=== PATIENT | male | born 1950 | race Caucasian/White ===

== ENCOUNTER 2017-03-10 10:29 | Emergency (ER) | payer MEDICARE ==
[2017-03-10] MEDS ORDERED: Albuterol/Ipratropium 3.0-0.5 MG/3 ML Neb Soln NEB ONE (10:47)
[2017-03-10] MEDS ORDERED: Sodium Chloride 0.9% 10 ML Syringe FLUSH PRN (10:52)
[2017-03-10] MEDS ORDERED: methylPREDNISolone Sodium Succinate 125 MG/2 ML SDV IVPUSH ONE (10:52)
[2017-03-10] MEDS ORDERED: Sodium Chloride 0.9% 2.5 ML Syringe FLUSH PRN (10:52)
--- NOTE | 2017-03-10 10:59 | EDM.PDOC ---
ED HPI GENERAL MEDICAL PROBLEM - General Chief Complaint: Respiratory Problem Stated Complaint: TROUBLE BREATHING Time Seen by Provider: 03/10/17 10:40 - History of Present Illness INITIAL COMMENTS - FREE TEXT/NARRATIVE: HISTORY AND PHYSICAL: History of present illness: The patient is a 66-year-old male with a history of COPD hypercholesterolemia diabetes A. fib and follows at [facility] with Dr. Collins; he presents with complaints of gradually progressing shortness of breath that has been long- standing over many months but has felt worse over the last few days. He is usually on a simple mask of oxygen 3-1/2 L which she has not been titrating. He says that he's been using his nebs regularly when I ask him but when the respiratory therapist asked him he says he may not have given himself one last few days. The patient is unsure of his medications and states that he is supposed to be seeing a radiosonde operator either at [facility] or in [place] but he has not yet connected with them. Denies any heart attacks or abdominal complaints and says he has no chest pain abdominal pain nausea vomiting and always has a runny nose and a cough which is nonproductive. The patient is still smoking cigarettes and has a long-standing history of tobacco use but says that he is only smoking 4-5 a day. According to the computer he had pulmonary function test done back in May of last year which revealed a severe obstructive lung defect with no significant bronchodilator response and diminished diffusion capacity overall. At that time he was smoking more. The patient also tells me that the edema that I am seeing on his lower extremities just started within the last 24 hours and his legs feel tight but he is not specifically having pain and one leg or the other. He says he been eating and drinking normally. Patient also says that he has been feeling slightly confused over the last few days and was worried about that which is why he came in. The patient states that all the symptoms have been progressive and he is just tired of having them. According to nursing the patient came in and through triage and did not have his nasal cannula prongs in his nose nor was his oxygen turned on. He states he did not know it was not turned on. Review of systems: As per history of present illness and below otherwise all systems reviewed and negative. Past medical history: As per history of present illness and as reviewed below otherwise noncontributory. Surgical history: As per history of present illness and as reviewed below otherwise noncontributory. Social history: No reported history of drug or alcohol abuse. Family history: As per history of present illness and as reviewed below otherwise noncontributory. Physical exam: Gen.: Well-developed overweight man who is nontoxic and speaking without breathlessness but does wax and wane on his history when asked by different individuals the same questions. Vital signs of been reviewed by me. He has been noted to have a harsh cough. HEENT: Atraumatic, normocephalic, pupils reactive, negative for conjunctival pallor or scleral icterus, mucous membranes moist, throat clear, neck supple, nontender, trachea midline. Lungs: Severely diminished air exchange throughout with an occasional crackle and wheeze but there is no overt work of breathing,, breath sounds equal bilaterally, chest nontender. Heart: S1S2, tachycardic rate and irregular rhythm on my evaluation no overt murmurs but heart sounds are somewhat distant Abdomen: Soft, nondistended, nontender. Abdomen is very rotund and protuberant and has brawny edema of the skin reaching his umbilicus Negative for masses or hepatosplenomegaly. Negative for costovertebral tenderness. Pelvis: Stable nontender. Genitourinary: Deferred. Rectal: Deferred. Extremities: Atraumatic, negative for cords or calf pain. Neurovascular unremarkable. The patient has chronic skin changes of his anterior tibial areas and has brawny edema of his entire legs which is 3+ tibial he. His skin color of his legs is slightly pinkish and there are no open lesions seen. Neuro: Awake, alert, oriented. Cranial nerves II through XII grossly unremarkable. Motor and sensory unremarkable throughout. Exam nonfocal. Diagnostics: EKG CBC CMP INR lactic acid troponin BNP UA did level ABG chest x-ray Therapeutics: IV O2 monitor DuoNeb Solu-Medrol Lasix I discussed the testing results at length with both the patient and the granddaughter at bedside. In light of the PCO2 of 100 and currently the patient is demonstrating more increased level of confusion we will go ahead and intubate the patient and plan for transfer to [facility] and my not. When the patient arrived he seemed somewhat confused and changes answers to questions but now after having 2 lengthy discussions with him about his testing results and the care plan he tells the nurse he doesn't even understand what's happening and where he is going. Just recently he was trying to climb out of the bed and he doesn't understand why he couldn't do that. We will go ahead and intubate him semi-electively per anesthesia. After intubation we will place a Howell catheter and I will give him a dose of Lasix and reevaluate his heart rate for rate control of his A. fib with RVR and better rate control. We are currently awaiting more testing results and I will follow all those up until the point he is transferred by flight. 1217: Case was discussed with Dr. Davis in the ED at [facility] and she accepts the patient for transfer. Please see the MAGNETO SPECIALIST's note for intubation procedure note 1235: Patient was intubated easily by anesthesia and the flight team is currently at bedside. We are currently performing a repeat portable chest x-ray for ET tube and NG tube placement and that will be checked prior to departure. I will check all labs that are outstanding, CMP and digoxin prior to the patient 's transfer and a Howell will be placed in a UA sent but I will not be able to check that result prior to the patient's discharge. 1244: Patient's heart rate after intubation is no 80s to 90s and occasionally jumps up to 100 but is maintaining at a rate controlled place so I will not dose any medications to assist with that. Flight team is currently packaging for transfer and potable chest x-ray has been done and will be checked by us. Critical care time excluding procedures: 31min Impression: Respiratory distress with hypercarbia and history of COPD, dependent fluid overload mild CHF, history of A. fib Definitive disposition and diagnosis as appropriate pending reevaluation and review of above. - Related Data Allergies Allergy/AdvReac Type Severity Reaction Status Date / Time No Known Allergies Allergy Verified 11/09/15 10:28 Home Meds: Home Meds Insulin Glargine,Hum.Rec.Anlog [[place]] 60 units SQ BEDTIME 11/09/15 [ History] Albuterol [Proventil HFA] 2 puff INH Q4H PRN 03/10/17 [History] Digoxin [Digitek] 250 mcg PO DAILY 03/10/17 [History] Diltiazem HCl [Diltiazem 24Hr ER] 300 mg PO DAILY 03/10/17 [History] Fluticasone/Vilanterol [Breo Ellipta 200-25 Mcg INH] 1 puff INH DAILY 03/10/17 [ History] Furosemide [Furosemide] 40 mg PO DAILY 03/10/17 [History] Ibuprofen 800 mg PO TID PRN 03/10/17 [History] Insulin Lispro [Humalog Kwikpen U-100] 22 units SUBCUT TID 03/10/17 [History] Warfarin [Coumadin] 7.5 mg PO DAILY 03/10/17 [History] atorvaSTATin [Lipitor] 40 mg PO BEDTIME 03/10/17 [History] metFORMIN [Glucophage XR] 1,000 mg PO BIDMEALS 03/10/17 [History] Past Medical History Cardiovascular History: Reports: Afib, Hypertension Respiratory History: Reports: None Gastrointestinal History: Reports: None Endocrine/Metabolic History: Reports: Diabetes, Type II Oncologic (Cancer) History: Reports: None Dermatologic History: Reports: None - Infectious Disease History Infectious Disease History: Reports: None Social & Family History - Family History Family Medical History: Noncontributory HEENT: Reports: None Cardiac: Reports: None - Tobacco Use Smoking Status *Q: Current Every Day Smoker Years of Tobacco use: 40 Packs/Tins Daily: 1 - Caffeine Use Caffeine Use: Reports: Coffee - Recreational Drug Use Recreational Drug Use: No ED ROS GENERAL - Review of Systems Review Of Systems: ROS reveals no pertinent complaints other than HPI. ED EXAM, GENERAL - Physical Exam Exam: See Below (See dictation) Course - Vital Signs Last Recorded V/S: Last Vital Signs Temp 36.3 C 03/10/17 10:51 Pulse 116 H 03/10/17 12:03 Resp 21 H 03/10/17 12:03 BP 127/76 03/10/17 12:03 Pulse Ox 98 03/10/17 12:03 - Orders/Labs/Meds Orders: Active Orders 24 hr Category Date Time Status Cardiac Monitoring [RC] . DIRECTED Care 03/10/17 10:51 Active EKG 12 Lead [EKG Documentation Completion] [RC] STAT Care 03/10/17 10:49 Active EKG Documentation Completion [RC] STAT Care 03/10/17 10:51 Active Insert Howell Catheter [Insert Urinary Catheter] [OM.PC] Care 03/10/17 12:30 Ordered Q24H Oxygen Therapy, ED [RC] ASDIRECTED Care 03/10/17 10:51 Active Pulse Oximetry [RC] ASDIRECTED Care 03/10/17 10:51 Active RT Aerosol Therapy [RC] ASDIRECTED Care 03/10/17 10:47 Active Urinary Catheter Assessment [RC] ASDIRECTED Care 03/10/17 12:22 Active Chest 1V Frontal [CR] Stat Exams 03/10/17 10:52 Taken Chest 1V Frontal [CR] Stat Exams 03/10/17 12:30 Ordered COMPREHENSIVE METABOLIC PN,CMP [CHEM] Stat Lab 03/10/17 11:33 Received DIGOXIN [CHEM] Stat Lab 03/10/17 11:33 Received UA W/MICROSCOPIC [URIN] Stat Lab 03/10/17 10:52 Uncollected Sodium Chloride 0.9% [Saline Flush] Med 03/10/17 10:52 Active 10 ml FLUSH ASDIRECTED PRN Sodium Chloride 0.9% [Saline Flush] Med 03/10/17 10:52 Active 2.5 ml FLUSH ASDIRECTED PRN Saline Lock Insert [OM.PC] Stat Oth 03/10/17 10:51 Ordered Medication Orders Sodium Chloride (Saline Flush) 10 ml FLUSH ASDIRECTED PRN PRN Reason: Keep Vein Open Sodium Chloride (Saline Flush) 2.5 ml FLUSH ASDIRECTED PRN PRN Reason: Keep Vein Open Labs: Laboratory Tests 03/10/17 03/10/17 03/10/17 Range/Units 10:55 11:33 11:33 WBC 8.59 (4.0-11.0) K/uL RBC 4.45 L (4.50-5.90) M/uL Hgb 14.5 (13.0-17.0) g/dL Hct 46.7 (38.0-50.0) % MCV 104.9 H (80.0-98.0) fL MCH 32.6 H (27.0-32.0) pg MCHC 31.0 (31.0-37.0) g/dL RDW Std Deviation 58.6 (28.0-62.0) fl RDW Coeff of Mitzy 15 (11.0-15.0) % Plt Count 180 (150-400) K/uL MPV 10.10 (7.40-12.00) fL Neut % (Auto) 85.4 H (48.0-80.0) % Lymph % (Auto) 7.8 L (16.0-40.0) % Twiggs % (Auto) 6.6 (0.0-15.0) % Eos % (Auto) 0.0 (0.0-7.0) % Baso % (Auto) 0.2 (0.0-1.5) % Neut # (Auto) 7.3 H (1.4-5.7) K/uL Lymph # (Auto) 0.7 (0.6-2.4) K/uL Twiggs # (Auto) 0.6 (0.0-0.8) K/uL Eos # (Auto) 0.0 (0.0-0.7) K/uL Baso # (Auto) 0.0 (0.0-0.1) K/uL Nucleated RBC % 0.0 /100WBC Nucleated RBCs # 0 K/uL INR 2.53 H (0.86-1.11) ABG pH (7.35-7.45) ABG pCO2 (35-45) mmHG ABG pO2 (75-100) mmHG ABG HCO3 (22-26) mEq/L ABG Total CO2 ABG Base Excess (-2.0-2.0) Lactate 1.7 (0.20-2.00) mmol/L Troponin I (0.0-0.29) NG/ML B-Natriuretic Peptide (<100) PG/ML 03/10/17 03/10/17 03/10/17 Range/Units 11:33 11:33 11:40 WBC (4.0-11.0) K/uL RBC (4.50-5.90) M/uL Hgb (13.0-17.0) g/dL Hct (38.0-50.0) % MCV (80.0-98.0) fL MCH (27.0-32.0) pg MCHC (31.0-37.0) g/dL RDW Std Deviation (28.0-62.0) fl RDW Coeff of Mitzy (11.0-15.0) % Plt Count (150-400) K/uL MPV (7.40-12.00) fL Neut % (Auto) (48.0-80.0) % Lymph % (Auto) (16.0-40.0) % Twiggs % (Auto) (0.0-15.0) % Eos % (Auto) (0.0-7.0) % Baso % (Auto) (0.0-1.5) % Neut # (Auto) (1.4-5.7) K/uL Lymph # (Auto) (0.6-2.4) K/uL Twiggs # (Auto) (0.0-0.8) K/uL Eos # (Auto) (0.0-0.7) K/uL Baso # (Auto) (0.0-0.1) K/uL Nucleated RBC % /100WBC Nucleated RBCs # K/uL INR (0.86-1.11) ABG pH 7.224 L (7.35-7.45) ABG pCO2 100 H (35-45) mmHG ABG pO2 102 H (75-100) mmHG ABG HCO3 41 H (22-26) mEq/L ABG Total CO2 38.1 ABG Base Excess 11.2 H (-2.0-2.0) Lactate (0.20-2.00) mmol/L Troponin I < 0.10 (0.0-0.29) NG/ML B-Natriuretic Peptide 138 H (<100) PG/ML Meds: Medications Generic Name Dose Route Start Last Admin Trade Name Freq PRN Reason Stop Dose Admin Sodium Chloride 10 ml 03/10/17 10:52 Saline Flush FLUSH ASDIRECTED PRN Keep Vein Open Sodium Chloride 2.5 ml 03/10/17 10:52 Saline Flush FLUSH ASDIRECTED PRN Keep Vein Open Discontinued Medications Generic Name Dose Route Start Last Admin Trade Name Freq PRN Reason Stop Dose Admin Albuterol/Ipratropium 3 ml 03/10/17 10:47 03/10/17 10:57 Duoneb 3.0-0.5 Mg/3 Ml NEB 03/10/17 10:48 3 ml ONETIME ONE Administration Furosemide Confirm 03/10/17 12:17 03/10/17 12:44 Lasix Administered 03/10/17 12:18 40 mg Dose Administration 40 mg .ROUTE .STK-MED ONE Methylprednisolone Sodium Succinate 125 mg 03/10/17 10:52 03/10/17 11:20 Solu-Medrol IVPUSH 03/10/17 10:53 125 mg ONETIME ONE Administration Propofol Confirm 03/10/17 12:30 Diprivan 20 Ml Administered 03/10/17 12:31 Dose 200 mg .ROUTE .STK-MED ONE Departure - Departure Time of Disposition: 12:45 Disposition: DC/Tfer to Acute Hospital 02 Condition: Critical Clinical Impression: Acute respiratory failure with hypoxia and hypercarbia - Discharge Information Forms: ED Department Discharge - My Orders Last 24 Hours: My Active Orders 03/10/17 10:47 RT Aerosol Therapy [RC] ASDIRECTED 03/10/17 10:49 EKG 12 Lead [EKG Documentation Completion] [RC] STAT 03/10/17 10:51 Cardiac Monitoring [RC] . DIRECTED EKG Documentation Completion [RC] STAT Oxygen Therapy, ED [RC] ASDIRECTED Pulse Oximetry [RC] ASDIRECTED Saline Lock Insert [OM.PC] Stat 03/10/17 10:52 Chest 1V Frontal [CR] Stat UA W/MICROSCOPIC [URIN] Stat Sodium Chloride 0.9% [Saline Flush] 10 ml FLUSH ASDIRECTED PRN Sodium Chloride 0.9% [Saline Flush] 2.5 ml FLUSH ASDIRECTED PRN 03/10/17 11:33 COMPREHENSIVE METABOLIC PN,CMP [CHEM] Stat DIGOXIN [CHEM] Stat 03/10/17 12:22 Urinary Catheter Assessment [RC] ASDIRECTED 03/10/17 12:30 Insert Howell Catheter [Insert Urinary Catheter] [OM.PC] Q24H Chest 1V Frontal [CR] Stat - Assessment/Plan Last 24 Hours: My Active Orders 03/10/17 10:47 RT Aerosol Therapy [RC] ASDIRECTED 03/10/17 10:49 EKG 12 Lead [EKG Documentation Completion] [RC] STAT 03/10/17 10:51 Cardiac Monitoring [RC] . DIRECTED EKG Documentation Completion [RC] STAT Oxygen Therapy, ED [RC] ASDIRECTED Pulse Oximetry [RC] ASDIRECTED Saline Lock Insert [OM.PC] Stat 03/10/17 10:52 Chest 1V Frontal [CR] Stat UA W/MICROSCOPIC [URIN] Stat Sodium Chloride 0.9% [Saline Flush] 10 ml FLUSH ASDIRECTED PRN Sodium Chloride 0.9% [Saline Flush] 2.5 ml FLUSH ASDIRECTED PRN 03/10/17 11:33 COMPREHENSIVE METABOLIC PN,CMP [CHEM] Stat DIGOXIN [CHEM] Stat 03/10/17 12:22 Urinary Catheter Assessment [RC] ASDIRECTED 03/10/17 12:30 Insert Howell Catheter [Insert Urinary Catheter] [OM.PC] Q24H Chest 1V Frontal [CR] Stat
[2017-03-10 12:05] VITALS: BP 127/76
[2017-03-10] MEDS ORDERED: Furosemide 40 MG/4 ML VIAL ONE (12:17)
[2017-03-10 12:23] LABS: CHLORIDE,CL 95 mmol/L (98-110); SODIUM,NA 139 mmol/L (136-146)
[2017-03-10] MEDS ORDERED: Propofol 200 MG/20 ML SDV ONE (12:30)
[2017-03-10] MEDS ORDERED: Rocuronium 50 MG/5 ML Vial IV ONE (13:12)
[2017-03-10] MEDS ORDERED: Succinylcholine 200 MG/10 ML MDV IV ONE (13:12)
--- NOTE | 2017-03-10 13:15 | PCM.SN ---
- Free Text/Narrative Note: Called for intubation secondary to hypercarbia and COPD exacerbation. Upon arrival patient sitting up on strecher with NRB mask 100% O2. Sats mid to low 90 's. Patient opens mouth and follows commands appropriately but unable to verbalize when asked questions. VSS at this time with EKG showing controlled Afib. Patient placed in supine position. Ambu bag/mask placed with 100% O2 to preO2. Sats 100%. 1234 smooth RSI with Rocuronium 5 mg IVP followed by Propofol 200 mg IVP, followed by Succinylcholine 140 mg IVP. Direct Laryngoscopy with Mac 3.5 blade -bilateral dentures noted and removed from mouth, full view of vocal cords. Atraumatic intubation with 8.0 ET tube 23 at the lip, positive ET color change to yellow with the calorimetric device post intubation, bilateral breath sounds equal, Sats 99%. 1235 BP 109/68. Flight crew here and assume care. 1004 Patient moving flight crew request paralytic, Rocuronium 50 mg IV given, flight managing sedation.
--- NOTE | 2017-03-12 10:25 | CR ---
EXAM DATE: 03/10/17 PATIENT'S AGE: 66 Patient: ADDIS BUTLER Facility: [place], [place] Site . Site : 1950 Study: XRay Chest [id number]/24/[id number] 11:22:47 AM Ordering Physician: Johana Chávez Final Report: Indication: Pain. SOB. Technique: Upright portable AP image of the chest. Comparison: None. Findings: No airspace infiltrate or pleural effusion. Venous congestion. Heart size at the upper limit of normal. No significant bony abnormality. Impression: 1. Venous congestion. 2. Clear lungs. Dictated by Nima Page MD @ Mar 10 2017 11:28AM (Electronic Signature) Report Signed by Proxy. DEDE
--- NOTE | 2017-03-12 10:26 | CR ---
EXAM DATE: 03/10/17 PATIENT'S AGE: 66 Patient: ADDIS BUTLER Facility: [place], [place] Site . Site : 1950 Study: XRay Chest [id number]/24/2017 12:50:01 PM Ordering Physician: Johana Chávez Final Report: INDICATION: Post intubation. Technique: Portable chest at 1243 hours. Comparison: Portable chest at 1116 hours. Findings: The distal tip of an endotracheal tube is 3 cm above the irma. The distal tip of the nasogastric tube below the left hemidiaphragm and off the inferior aspect of this image. The heart and mediastinum are stable. The pulmonary vessels are normal. The lungs are clear and are fully expanded. A monitoring lead overlying the lateral aspect of the right lower chest mimics a pneumothorax. No pleural fluid. Bony structure are unremarkable. Impression : Support tubes and catheters as described above. No pneumothorax or other acute chest disease Dictated by Genia Griffith MD @ Mar 10 2017 1:08PM (Electronic Signature) Report Signed by Proxy. DEDE
== END 2017-03-10 13:05 ==
LOC: MW.ED 10:29
DX: J96.02 Acute respiratory failure with hypercapnia (principal); J96.01 Acute respiratory failure with hypoxia; J44.9 Chronic obstructive pulmonary disease, unspecified; E78.00 Pure hypercholesterolemia, unspecified; E11.9 Type 2 diabetes mellitus without complications; I48.91 Unspecified atrial fibrillation; F17.210 Nicotine dependence, cigarettes, uncomplicated; Z79.01 Long term (current) use of anticoagulants; Z79.899 Other long term (current) drug therapy; Z79.4 Long term (current) use of insulin
CPT/HCPCS: 36415; 36600; 71010; 80053; 80162; 81001; 82803; 83605; 83880; 84484; 85025; 85610; 93005; 94664; 96374; 99291; J0330; J1940; J2930; 31500; 96375